=== PATIENT | female | born 1970 | race Asian ===

== ENCOUNTER 2020-03-02 01:38 | Emergency (ER) | payer SELFPAY ==
[~2020-03-02] VITALS: Ht 165.1 cm; Wt 54.4 kg
[2020-03-02 01:45] VITALS: BP 132/98
[2020-03-02] MEDS ORDERED: HYDROcodone/Acetamin 5/325 tab ORAL ONE (01:45)
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
[2020-03-02] MEDS ORDERED: Neosporin Oint Ud Pkt TOPIC ONE (02:15)
[2020-03-02] MEDS ORDERED: IBUPROFEN600 M1 ORAL (02:20)
--- NOTE | 2020-03-02 02:30 | NUR ---
ED Nurse Note: Rashawn wrap placed by tech on bilat ankles for support and pt given crutches and instructed how to use them.
[2020-03-02 03:00] VITALS: BP 128/95
--- NOTE | 2020-03-02 03:00 | NUR ---
ER DISCHARGE NOTE: Patient is cleared to be discharged per ERMD, pt is aox4, on room air, with stable vital signs. pt was given dc and prescription instructions, pt was able to verbalize understanding, pt id band removed. pt is able to ambulate with steady gait. pt took all belongings.
--- NOTE | 2020-03-02 08:37 | Diagnostic Imaging Report ---
Indication: Trauma, pain Technique: 3 views of the left ankle Comparison: none Findings: No acute fractures. No dislocations. The joint spaces are preserved. Impression: Negative
--- NOTE | 2020-03-02 08:38 | Diagnostic Imaging Report ---
Indication: Trauma, pain Technique: 3 views of the right ankle Comparison: none Findings: Bony alignment is normal. No acute fractures. No dislocations. The joint spaces are preserved Impression: Negative
== END 2020-03-02 03:10 | disposition home or self-care (01) ==
LOC: EDBD 01:38 → EMR 02:00
DX: S90.512A Abrasion, left ankle, initial encounter (principal); S93.402A Sprain of unspecified ligament of left ankle, initial encounter; S93.401A Sprain of unspecified ligament of right ankle, initial encounter; V03.90XA Pedestrian on foot injured in collision with car, pick-up truck or van, unspecified whether traffic or nontraffic accident, initial encounter
CPT/HCPCS: 99284